=== PATIENT | male | born 1975 | race African-American/Black ===

== ENCOUNTER 2024-01-20 04:56 | Inpatient (IN) | payer SELFPAY ==
[2024-01-20 05:12] LABS: #Basophils Less than 0.03 10x3/uL (0.0-0.2); %Basophils 0.2 % (0.0-1.0); %Lymphocytes 31.4 % (21.0-51.0); %Monocytes 8.5 % (0.0-10.0); %Neutrophils 58.5 % (42.0-75.0); Hematocrit 39.6 % (42.0-52.0); Mean Corpuscular HGB CONC 32.8 g/dL (32.0-36.0); Mean Corpuscular Hemoglobin 27.4 pg (27.0-31.0); Mean Corpuscular Volume 83.4 fL (78.0-98.0); Mean Platelet Volume 9.8 fL (7.4-10.4); Platelet Count 300 10x3/uL (130-400); RBC Distribution Width 13.3 % (11.5-14.5); Red Blood Cell (RBC) Count 4.75 mill/uL (4.70-6.10)
[2024-01-20 05:27] LABS: ALT (SGPT) 14 U/L (8-55); AST (SGOT) 17 U/L (5-34); Albumin 3.3 g/dL (3.5-5.0); Alkaline Phosphatase 171 U/L (40-110); Anion Gap 13 mmol/L (10-20); BUN (Urea Nitrogen) 12 mg/dL (8.9-20.6); Bilirubin, Total 0.5 mg/dL (0.2-1.2); Calc. Creatinine Clearance 0 mL/min (70-130); Calcium 9.4 mg/dL (7.8-10.44); Carbon Dioxide 24 mmol/L (22-29); Chloride 105 mmol/L (98-107); Estimated GFR 76; Globulin 4.9 g/dL (2.4-3.5); Glucose 97 mg/dL (70-105); Potassium 4.1 mmol/L (3.5-5.1); Protein, Total 8.2 g/dL (6.0-8.3); Sodium 138 mmol/L (136-145)
[2024-01-20] MEDS ORDERED: diphenhydrAMINE 50 MG/ML VIAL ONE (05:31)
[2024-01-20 05:32] LABS: Troponin I 0.028 ng/mL (< 0.028)
[2024-01-20] MEDS ORDERED: Famotidine/PF 20 mg/2ml Vial ONE (05:32)
[2024-01-20] MEDS ORDERED: EPINEPHrine 1 MG/ML VIAL ONE (05:43)
[2024-01-20] MEDS ORDERED: traMADol HCl 50 MG TAB PO PRN ×2 (10:00)
[2024-01-20] MEDS ORDERED: Ondansetron PF 4 MG/2 ML Vial IVP PRN (10:00)
[2024-01-20] MEDS ORDERED: Acetaminophen 325 MG TAB PO PRN (10:00)
[2024-01-20] MEDS ORDERED: Bisacodyl 5 MG TAB PO PRN (10:00)
[2024-01-20] MEDS: Famotidine/PF 20 mg/2ml Vial SLOW IVP SCH ×2 (11:00→21:05)
[2024-01-20] MEDS ORDERED: Iopamidol 370 76% 100 ML VIAL ONE (12:53)
[2024-01-20 13:02] VITALS: BMI 33.5
[2024-01-20] MEDS: methylPREDNISolone Sod Succ 40 MG VIAL IVP SCH (14:59)
[2024-01-20] MEDS: diphenhydrAMINE 50 MG/ML VIAL IVP SCH (18:58)
[2024-01-21] MEDS: Amlodipine 5 MG TAB PO SCH (09:29)
[2024-01-21 11:54] VITALS: BP 172/90; TEMP 98
[2024-01-21] MEDS ORDERED: Iopamidol-370 76% 500 ML MDV (1 ML CHARGE) ONE (12:00)
== END 2024-01-21 13:06 | disposition home or self-care (01) | DRG 916 ==
LOC: ERS 04:56 → ERHOLD 08:22 → IMCU/EMU 10:15 → CCU 10:15 → IMCU/EMU 20:28 → T4-A 01-21 03:45
PROVIDERS: ADMIT Internal Medicine; ATTEND Hospitalist
DX: T78.3XXA Angioneurotic edema, initial encounter (principal); J94.8 Other specified pleural conditions; I10 Essential (primary) hypertension; Z87.891 Personal history of nicotine dependence; T46.4X5A Adverse effect of angiotensin-converting-enzyme inhibitors, initial encounter; R79.89 Other specified abnormal findings of blood chemistry
CPT/HCPCS: 70491; 71045; 71260; 80053; 83880; 84484; 85025; 93005; 96372; 96374; 96375; J0171; J1200; J2919; J3490; Q9967